=== PATIENT | male | born 1995 | race Hispanic/Latino ===

== ENCOUNTER 2021-10-02 22:10 | Emergency (ER) | payer BC, OTHER ==
[2021-10-03] MEDS ORDERED: Ketorolac Tromethamine 30 MG/ML VIAL ONE (00:13)
== END 2021-10-03 00:17 | disposition home or self-care (01) ==
LOC: CSHERS 22:10
DX: H60.91 Unspecified otitis externa, right ear (principal)
CPT/HCPCS: 96372; 99283; J1885